=== PATIENT | female | born 1960 | race Caucasian/White ===

== ENCOUNTER 2016-11-30 07:51 | Outpatient (CLI) | payer OTHER ==
--- NOTE | 2016-11-30 08:30 | DIAGNOSTIC IMAGING REPORT ---
PROCEDURE: US ABDOMEN ULTRASOUND-COMPLETE INDICATION: UPPER GASTRIC PAIN, initial encounter TECHNIQUE: Warren scale and color Doppler sonographic images of the abdomen were obtained. COMPARISON: None. FINDINGS: Normal gallbladder and CBD (4 mm). Liver, spleen and pancreas are normal. Aorta and IVC are patent. Normal hepatopetal flow. Normal kidneys. Right kidney measures 9.6 cm and left kidney 10 cm. IMPRESSION: 1. Negative abdominal ultrasound
[2016-12-19] MEDS ORDERED: ASPIRIN ADULT L81 M1 PO (12:06)
[2016-12-19] MEDS ORDERED: BACLOFEN20 MG PO (12:07)
[2016-12-19] MEDS ORDERED: ESTRACE2 MG PO (12:08)
[2016-12-19] MEDS ORDERED: GABAPENTIN300 MG PO (12:09)
[2016-12-19] MEDS ORDERED: LEVOTHYROXINE50 MCG PO (12:09)
[2016-12-19] MEDS ORDERED: RESTASIS0.05 % (12:10)
[2016-12-19] MEDS ORDERED: VITAMIN D-31000 UNIT PO (12:11)
[2016-12-19] MEDS ORDERED: SUPER B-COMPLEX PO (12:11)
[2016-12-19] MEDS ORDERED: AMBIEN5 MG PO (12:12)
[2016-12-19] MEDS ORDERED: OMEPRAZOLE20 M1 PO (12:12)
== END 2016-11-30 23:00 ==
LOC: US SRH 07:51
DX: R10.9 Unspecified abdominal pain (principal)